=== PATIENT | male | born 2000 | race Caucasian/White ===

== ENCOUNTER 2023-01-19 14:10 | Emergency (ER) | payer OTHER, SELFPAY ==
[2023-01-19 14:17] VITALS: BP 111/75; PULSE 93; RESP 16; TEMP 37.1; O2SAT 99
--- NOTE | 2023-01-19 14:21 | ED.URI ---
HPI - URI/Sore Throat General Chief Complaint: Upper Respiratory Infection Stated Complaint: throat/migraines/dizzy Time Seen by Provider: 01/19/23 14:15 Source: patient and RN notes reviewed History of Present Illness HPI Narrative: Patient is a 22-year-old male who presents to urgent care with complaints of a sore throat that started Thursday, migraine and dizziness. Patient states he has also had some intermittent nausea. States that it started last week on and they told him he was dehydrated. Patient was told this information by the doctor at his workplace. Patient states that he has been increasing his water intake and taking Tylenol for the discomfort. Denies any known fevers. No other acute complaints. No acute distress noted. Patient aware of the plan of care. Some parts of this dictation were generated by voice recognition software and may contain typographical and/or grammatical inaccuracies. Related Data Allergies Allergy/AdvReac Type Severity Reaction Status Date / Time No Known Allergies Allergy Unverified 09/10/18 10:40 Review of Systems Review of Systems: CONSTITUTIONAL: Denies fever, chills, or sweats. EYES: Denies visual changes, redness, or discharge. ENT: Denies rhinorrhea, congestion, otalgia. Reports of sore throat CARDIOVASCULAR: Denies chest pain, palpitations, or edema. RESPIRATORY: Denies cough or dyspnea. GASTROINTESTINAL: Denies abdominal pain, nausea, vomiting, or diarrhea. GENITOURINARY: Denies dysuria or hematuria. SKIN: Denies rash or itching. MUSCULOSKELETAL: Denies back pain, joint pain, or myalgia. NEUROLOGIC: Reports of intermittent headaches and dizziness All other systems reviewed are negative, except as documented in HPI. PMFSH Comments At the time of my signature, I reviewed and agree with the nursing past medical, surgical, social, and family history. There is no relevant family history pertinent to the patient complaint. Exam Narrative: GENERAL: This is a well-nourished, well-developed patient, in no apparent distress. HEAD: normocephalic, atraumatic. EYES: PERRL. Sclera clear/white. Vision is grossly intact. EARS: External ears normal, auditory canals clear and without drainage, TMs normal without perforation. Hearing grossly intact. NOSE: External nose normal with no obvious nasal discharge, nares without redness, clear rhinorrhea. THROAT: Mucous membranes moist, mild erythema to posterior pharynx NECK: Neck supple, non-tender without lymphadenopathy CARDIOVASCULAR: Regular rate and rhythm without murmurs, gallops, or rubs. RESPIRATORY: Clear to auscultation. Breath sounds equal bilaterally. No wheezes, rales, or rhonchi. SKIN: warm, intact with no suspicious lesions or rash, good texture and turgor. NEURO: awake, alert, and oriented to person, place and time. There were no obvious focal neurologic abnormalities. EXTREMITIES: No clubbing, cyanosis, or edema. Course Course Level of Care: Express Care Visit Vital Signs Vital signs: Vital Signs Temperature 98.8 F 01/19/23 14:17 Pulse Rate 93 01/19/23 14:17 Respiratory Rate 16 01/19/23 14:17 Blood Pressure 111/75 01/19/23 14:17 Pulse Oximetry 99 01/19/23 14:17 Oxygen Delivery Room Air 01/19/23 14:17 Temperature 98.8 F 01/19/23 14:17 Pulse Rate 93 01/19/23 14:17 Respiratory Rate 16 01/19/23 14:17 Blood Pressure 111/75 01/19/23 14:17 Pulse Oximetry 99 01/19/23 14:17 Oxygen Delivery Room Air 01/19/23 14:17 Reviewed MDM - URI/Sore Throat MDM Narrative Medical decision making narrative: Reviewed lab results with the patient. He is aware that strep swab was positive. Advised patient to complete the oral antibiotic regimen as prescribed. Be sure to eat and drink with medication. Use Tylenol/ibuprofen as needed. Increase her water intake and rest. May use antihistamine such as Benadryl/Claritin/Zyrtec for symptom relief. You are considered contagious until you
== END 2023-01-19 14:44 | disposition home or self-care (01) ==
PROVIDERS: Emergency Provider Nurse Practitioner Family; PCP Family Medicine
DX: J02.0 Streptococcal pharyngitis (principal)
CPT/HCPCS: 87880; 99213; G0463

== ENCOUNTER 2024-04-05 17:02 | Emergency (ER) | payer OTHER, SELFPAY ==
[2024-04-05 17:10] VITALS: BP 121/64; PULSE 68; RESP 20; TEMP 36.8; O2SAT 100
--- NOTE | 2024-04-05 17:20 | ED_ITS ---
HPI - General Adult General Chief complaint: Unspecified Stated complaint: cold sores in mouth History of Present Illness HPI narrative: PATIENT PRESENTS WITH CROUP CURRENT COLD SORES. PATIENT TAKES STATES HE HAS TAKEN FELL CYCLE OF AIR IN THE PAST WHICH DOES NOT HELP HIS COLD SORES. PATIENT HAS ALSO TRIED A MOUTHWASH GIVEN TO HIM BY THE DENTIST WHICH HAS NOT HELPED HIS COLD SORES. Related Data Allergies Allergy/AdvReac Type Severity Reaction Status Date / Time No Known Allergies Allergy Verified 04/05/24 17:20 Review of Systems Review of Systems: CONSTITUTIONAL: DENIES FEVER, CHILLS, OR SWEATS. EYES: DENIES VISUAL CHANGES, REDNESS, OR DISCHARGE. ENT: DENIES RHINORRHEA, CONGESTION, SORE THROAT, OR OTALGIA. CARDIOVASCULAR: DENIES CHEST PAIN, PALPITATIONS, OR EDEMA. RESPIRATORY: DENIES COUGH OR DYSPNEA. GASTROINTESTINAL: DENIES ABDOMINAL PAIN, NAUSEA, VOMITING, OR DIARRHEA. GENITOURINARY: DENIES DYSURIA OR HEMATURIA. SKIN: DENIES RASH OR ITCHING. MUSCULOSKELETAL: DENIES BACK PAIN, JOINT PAIN, OR MYALGIA. NEUROLOGIC: DENIES HEADACHE, NUMBNESS, OR WEAKNESS. PSYCHIATRIC: DENIES ANXIETY OR DEPRESSION. FOR[facility]LY [facility], [facility] Comments AT TIME OF SIGNATURE, AGREE WITH NURSING PAST MEDICAL, SURGICAL, SOCIAL AND FAMILY HISTORY. THERE IS NO RELEVANT FAMILY HISTORY PERTINENT TO THE PRESENTING COMPLAINT Exam Narrative: GENERAL: WELL-APPEARING, WELL-NOURISHED, AND IN NO ACUTE DISTRESS. HEAD: NORMOCEPHALIC, ATRAUMATIC. EYES: PERRLA AND EOMI. ENT: NARES CLEAR, NO RHINORRHEA OR EPISTAXIS. MUCOUS MEMBRANES MOIST. NECK: SUPPLE. CHEST: CLEAR TO AUSCULTATION. NO RESPIRATORY DISTRESS. HEART: REGULAR RATE AND RHYTHM. NO MURMUR HEARD. NORMAL PERIPHERAL PULSES. ABDOMEN: SOFT, NONTENDER, NONDISTENDED, NORMAL ACTIVE BOWEL SOUNDS. EXTREMITIES: NORMAL RANGE OF MOTION. NO EDEMA. SKIN: WARM, DRY, NO RASH. NEURO: NO FOCAL DEFICITS. ALERT AND ORIENTED X3. JOHN COMA SCALE EYE OPENING: SPONTANEOUS 4 JOHN COMA SCALE MOTOR: OBEYS COMMANDS 6 JOHN COMA SCALE VERBAL: ORIENTED 5 JOHN COMA SCALE TOTAL 15 HENMT: Mouth: Yes Abnormal oral and palatal mucosa present vesicles (TO INNER LIPS) and vesicles Course Course Level of Care: Express Care Visit Discharge Plan Discharge Clinical Impression: Cold sore Patient Disposition: Home, Self-Care Condition: Stable Instructions: Oral Herpes Infection (ED) Additional Instructions: USE MEDICATION PRESCRIBED PRACTICE GOOD ORAL HYGIENE FOLLOW-UP WITH PRIMARY CARE PROVIDER IN 3-4 DAYS NEEDED IF ANY NEW OR WORSENING SYMPTOMS PLEASE GO TO ER IMMEDIATELY FURTHER EVALUATION TREATMENT Prescriptions: New docosanol [Abreva] 10 % cream 1 applic topical TID 7 Days Qty: 2 0RF Follow-up/Referrals: PHYSICIAN,QUARANTINE OFFICER [Primary Care Provider] -
== END 2024-04-05 17:28 | disposition home or self-care (01) ==
PROVIDERS: Emergency Provider Nurse Practitioner Family
DX: B00.1 Herpesviral vesicular dermatitis (principal)
CPT/HCPCS: 99213; G0463